=== PATIENT | female | born 2005 | race Two or more races ===

== ENCOUNTER 2025-06-21 16:17 | Emergency (ER) | payer OTHER ==
[~2025-06-21] VITALS: Ht 165.1 cm; Wt 78.0 kg
[2025-06-21] MEDS: KETOROLAC TROMETHAMINE 60 MG/2 ML VIAL IM ONE (18:42)
[2025-06-21] MEDS: ACETAMINOPHEN/CODEINE 300-30 MG TABLET PO ONE (18:42)
[2025-06-21] MEDS: ONDANSETRON 4 MG TABLET PO ONE (18:42)
[2025-06-21] MEDS ORDERED: ACET-66 PO (20:28)
[2025-06-21] MEDS ORDERED: IBUP-1554 PO (20:28)
[2025-06-21 21:00] VITALS: BP 116/67; PULSE 88; RESP 16; TEMP 97.3; O2SAT 98
== END 2025-06-21 21:55 | disposition home or self-care (01) ==
LOC: EMS 16:17
DX: S16.1XXA Strain of muscle, fascia and tendon at neck level, initial encounter (principal); V89.2XXA Person injured in unspecified motor-vehicle accident, traffic, initial encounter; Y93.89 Activity, other specified; Y92.410 Unspecified street and highway as the place of occurrence of the external cause; Y99.8 Other external cause status
CPT/HCPCS: 99283; 72040; 96372; J1885; Q0162